=== PATIENT | male | born 1980 | race Caucasian/White ===

== ENCOUNTER 2016-11-02 11:01 | Emergency (ER) | payer MEDICARE ==
[~2016-11-02] VITALS: Ht 172.7 cm; Wt 102.1 kg
[2016-11-02 11:47] LABS: BILIRUBIN NEGATIVE (NEGATIVE); BLOOD 3+ (NEGATIVE); CLARITY CLEAR (CLEAR); COLOR YELLOW (YELLOW); GLUCOSE NEGATIVE (NEGATIVE); KETONE NEGATIVE (NEGATIVE); LEUKO ESTERASE NEGATIVE (NEGATIVE); NITRITE NEGATIVE (NEGATIVE); PH 6.5 (5.0-9.0); PROTEIN NEGATIVE (NEGATIVE); UROBILINOGEN 0.2 E.U./dl (0.2-1.0)
[2016-11-02 11:50] LABS: BASO # 0.1 10*3/uL (0.0-0.1); BASO % 1.1 % (0.0-1.0); EOS # 0.1 10*3/uL (0.0-0.4); EOS % 0.9 % (1.0-4.0); HEMATOCRIT 50.1 % (42.0-52.0); HEMOGLOBIN 16.8 g/dl (14.0-18.0); LYMPH # 2.5 10*3/uL (1.3-4.4); MEAN CELL VOLUME 89.9 fl (80.0-94.0); MEAN CORPUSCULAR HGB 30.2 pg (27.0-31.0); MEAN CORPUSCULAR HGB CONC 33.5 g/dl (33.0-37.0); MEAN PLATELET VOLUME 9.1 fl (9.6-12.3); MONO # 0.6 10*3/uL (0.1-1.0); MONO % 7.6 % (3.0-9.0); NEUT # 4.7 10*3/uL (2.3-7.9); NEUT % 59.1 % (47.0-73.0); PLATELET COUNT AUTOMATED 297 10*3/uL (130-400); RED BLOOD COUNT 5.57 10*6/uL (4.50-5.90); RED CELL DISTRI WIDTH 12.8 % (0-14.5); WHITE BLOOD COUNT 7.9 10*3/uL (4.8-10.8)
[2016-11-02 11:56] LABS: RBC 41-50 rbc/hpf (0-2)
[2016-11-02 11:57] LABS: URINE REFLEX COMMENT YES (NO); WBC 0-2 wbc/hpf (0-5)
[2016-11-02 12:10] LABS: ALBUMIN 3.5 gm/dl (3.1-4.5); ALKALINE PHOSPHATASE 98 U/L (45-117); BILIRUBIN, TOTAL 0.4 mg/dl (0.2-1.0); BUN 13 mg/dl (7-24); CARBON DIOXIDE 27 mmol/L (21-32); CHLORIDE 106 mmol/L (98-107); EST GLOM FILT AFRICAN AMERICAN > 60 ml/min; GLUCOSE 127 mg/dL (65-99); MAGNESIUM 1.9 mg/dL (1.5-2.1); POTASSIUM 3.7 mmol/L (3.5-5.1); SGOT/AST 37 IU/L (3-35); SGPT/ALT 43 U/L (12-78); SODIUM 140 mmol/L (136-145); TOTAL PROTEIN 7.2 gm/dL (6.4-8.2)
[2016-11-02 13:06] LABS: URINE AMPHETAMINES < 1000 (1000ng/ml); URINE BARBITURATES < 200 (200ng/ml); URINE COCAINE < 300 (300ng/ml)
== END 2016-11-02 13:40 | disposition home or self-care (01) ==
LOC: ED 11:01
PROVIDERS: Emergency Medicine
DX: F41.9 Anxiety disorder, unspecified (principal); F32.9 Major depressive disorder, single episode, unspecified; F17.200 Nicotine dependence, unspecified, uncomplicated

== ENCOUNTER 2023-09-26 07:04 | Inpatient (IN) | payer MEDICAID ==
[~2023-09-26] VITALS: Ht 170.2 cm; Wt 124.5 kg
[2023-09-26] VITALS (10 sets, daily range): BP systolic 114–145; BP diastolic 68–92
[2023-09-26] MEDS ORDERED: HYDROXYZINE PAM50 MG PO (07:29)
[2023-09-26] MEDS ORDERED: OLANZAPINE20 M2 PO (07:29)
[2023-09-26] MEDS ORDERED: ZESTORETIC 20-1 EACH PO (07:30)
[2023-09-26] MEDS ORDERED: GABAPENTIN800 MG PO (07:30)
[2023-09-26] MEDS ORDERED: BUSPAR15 MG PO (07:30)
[2023-09-26] MEDS ORDERED: VENLAFAXINE HY150 M2 PO (07:31)
[2023-09-26] MEDS ORDERED: LEVOTHYROXINE50 MCG PO (07:31)
[2023-09-26] MEDS ORDERED: METFORMIN HYDR500 MG PO (07:31)
[2023-09-26] MEDS ORDERED: ROSUVASTATIN CA10 MG PO (07:32)
[2023-09-26] MEDS ORDERED: 'XANAX1 MG PO (07:32)
[2023-09-26 07:59] LABS: BASO # 0.1 10*3/uL (0.0-0.1); BASO % 0.8 % (0.0-1.0); EOS # 0.3 10*3/uL (0.0-0.4); EOS % 2.1 % (1.0-4.0); HEMATOCRIT 43.5 % (42.0-52.0); LYMPH # 1.9 10*3/uL (1.3-4.4); LYMPH % 11.9 % (27.0-41.0); MEAN CORPUSCULAR HGB 31.9 pg (27.0-31.0); MEAN CORPUSCULAR HGB CONC 34.7 g/dl (33.0-37.0); MEAN PLATELET VOLUME 8.6 fl (9.6-12.3); MONO # 0.9 10*3/uL (0.1-1.0); MONO % 5.5 % (3.0-9.0); NEUT # 12.3 10*3/uL (2.3-7.9); NEUT % 78.9 % (47.0-73.0); PLATELET COUNT AUTOMATED 376 10*3/uL (130-400); RED BLOOD COUNT 4.73 10*6/uL (4.50-5.90); WHITE BLOOD COUNT 15.5 10*3/uL (4.8-10.8)
[2023-09-26 08:27] LABS: ALKALINE PHOSPHATASE 102 U/L (46-116); BUN 10 mg/dl (9-23); CHLORIDE 107 mmol/L (98-107); POTASSIUM 3.3 mmol/L (3.4-5.1); SGPT/ALT 15 U/L (5-49); TOTAL PROTEIN 7.3 gm/dL (6.0-8.0)
[2023-09-26] MEDS ORDERED: SODIUM CHLORIDE 0.9% 1,000 ML IV SCH (09:25)
[2023-09-26] MEDS ORDERED: Piperacillin Sodium/Tazobact 50 ML IV ONE (09:25)
[2023-09-26] MEDS ORDERED: POTASSIUM CHLORIDE 20 MEQ TAB PO ONE ×2 (09:25→14:50)
[2023-09-26] MEDS ORDERED: Vancomycin Hydrochloride 1,000 MG in SODIUM CHLORIDE 0.9% 250 ML IV ONE (09:25)
[2023-09-26] MEDS ORDERED: MORPHINE Sulfate 2 MG/ML SYR IV ONE (09:30)
[2023-09-26] MEDS ORDERED: Vancomycin Hydrochloride 250 ML IV ONE (09:30)
[2023-09-26] MEDS ORDERED: BUPIVACAINE 0.5% 50 ML VIAL ONE (11:30)
[2023-09-26] MEDS ORDERED: BUPIVACAINE 0.5% 30 ML IV ONE (11:31)
[2023-09-26] MEDS ORDERED: Metoclopramide Hydrochloride 10 MG/2 ML AMP ONE (11:47)
[2023-09-26] MEDS ORDERED: Ondansetron Hydrochloride 4 MG/2 ML VIAL ONE (11:48)
[2023-09-26] MEDS ORDERED: BISACODYL 10 MG SUPP R PRN (12:45)
[2023-09-26] MEDS ORDERED: HYDROmorphONE Hydrochloride 1 MG/ML SYR IV PRN (12:45)
[2023-09-26] MEDS ORDERED: Magnesium Hydroxide 30 ML UDC PO PRN (12:45)
[2023-09-26] MEDS ORDERED: ACETAMINOPHEN 325 MG TAB PO PRN (12:45)
[2023-09-26] MEDS ORDERED: BISACODYL 5 MG TAB PO PRN (12:45)
[2023-09-26] MEDS ORDERED: Acetaminophen/Oxycodone 5 MG/325 MG TABLET PO PRN (12:45)
[2023-09-26] MEDS ORDERED: SODIUM CHLORIDE 0.9% 1,000 ML IV ONE ×2 (12:50→12:55)
[2023-09-26] MEDS ORDERED: ALBUTEROL 8 GM INHALER INH ONE (14:42)
[2023-09-26] MEDS ORDERED: fentaNYL CITRATE 100 MCG/2 ML VIAL IV ONE (14:42)
[2023-09-26] MEDS ORDERED: ROCURONIUM BROMIDE 50 MG/5 ML SYRINGE IV ONE (14:42)
[2023-09-26] MEDS ORDERED: PROPOFOL 200 MG/20 ML VIAL IV ONE (14:42)
[2023-09-26] MEDS ORDERED: SEVOFLURANE 250 ML BOT INH ONE (14:42)
[2023-09-26] MEDS ORDERED: Succinylcholine Chloride 200 MG/10 ML SYRINGE IV ONE (14:42)
[2023-09-26] MEDS ORDERED: Midazolam Hydrochloride 2 MG/2 ML VIAL IV ONE (14:42)
[2023-09-26] MEDS ORDERED: Piperacillin Sodium/Tazobact 4.5 GM in SODIUM CHLORIDE 0.9% 100 ML IV SCH (16:00)
[2023-09-26] MEDS ORDERED: GABAPENTIN 800 MG TAB PO SCH (18:00)
[2023-09-26] MEDS ORDERED: hydrOXYzine pamoate 25 MG CAP PO SCH (18:00)
[2023-09-26] MEDS ORDERED: busPIRone Hydrochloride 15 MG TAB PO SCH (18:00)
[2023-09-26] MEDS ORDERED: Ketorolac Tromethamine 30 MG/ML VIAL IV SCH (18:00)
[2023-09-26] MEDS ORDERED: ATORVASTATIN CALCIUM 10 MG TAB PO SCH (22:00)
[2023-09-26] MEDS ORDERED: ALPRAZolam 0.5 MG TAB PO SCH (22:00)
[2023-09-27] VITALS: BP 117/74
[2023-09-27] MEDS ORDERED: SODIUM CHLORIDE 0.9% 1,000 ML IV ONE ×2 (00:45→00:46)
[2023-09-27] MEDS ORDERED: Pantoprazole Sodium 40 MG TAB PO SCH (06:00)
[2023-09-27 07:08] LABS: BASO # 0.1 10*3/uL (0.0-0.1); BASO % 0.6 % (0.0-1.0); EOS # 0.5 10*3/uL (0.0-0.4); HEMATOCRIT 41.7 % (42.0-52.0); LYMPH # 2.3 10*3/uL (1.3-4.4); LYMPH % 16.9 % (27.0-41.0); MEAN CELL VOLUME 93.3 fl (80.0-94.0); MEAN CORPUSCULAR HGB 32.4 pg (27.0-31.0); MEAN CORPUSCULAR HGB CONC 34.8 g/dl (33.0-37.0); MEAN PLATELET VOLUME 8.9 fl (9.6-12.3); MONO # 0.5 10*3/uL (0.1-1.0); MONO % 3.9 % (3.0-9.0); NEUT % 73.9 % (47.0-73.0); PLATELET COUNT AUTOMATED 318 10*3/uL (130-400); RED BLOOD COUNT 4.47 10*6/uL (4.50-5.90); RED CELL DISTRI WIDTH 12.4 % (0-14.5); WHITE BLOOD COUNT 13.5 10*3/uL (4.8-10.8)
[2023-09-27 07:35] LABS: ALKALINE PHOSPHATASE 100 U/L (46-116); BUN 12 mg/dl (9-23); CHLORIDE 107 mmol/L (98-107); POTASSIUM 3.6 mmol/L (3.4-5.1); SGPT/ALT 16 U/L (5-49); TOTAL PROTEIN 6.7 gm/dL (6.0-8.0)
[2023-09-27 08:00] VITALS: BP 123/70
[2023-09-27] MEDS ORDERED: Venlafaxine Hydrochloride 75 MG CAP PO SCH (10:00)
[2023-09-27] MEDS ORDERED: Enoxaparin Sodium 40 MG/0.4 ML SYR SC SCH (10:00)
[2023-09-27] MEDS ORDERED: Levothyroxine Sodium 50 MCG TAB PO SCH (10:00)
[2023-09-27] MEDS ORDERED: LISINOPRIL 20 MG TAB PO SCH (10:00)
[2023-09-27] MEDS ORDERED: OLANZAPINE 10 MG TAB PO SCH (10:00)
[2023-09-27] MEDS ORDERED: HYDROCODONE-AC1 EAC1 PO (10:54)
[2023-09-27] MEDS ORDERED: AMOX-CLAV 875-1 EACH PO (10:54)
[2023-09-27 12:00] VITALS: BP 120/70
[2023-09-27] MEDS ORDERED: Enoxaparin Sodium 40 MG/0.4 ML SYR SC ONE (12:40)
== END 2023-09-27 12:00 | disposition home or self-care (01) | DRG 710 ==
LOC: ED 07:04 → 4E 09:45 → EDHOLD 09:45 → 4E 10:15
PROVIDERS: Internal Medicine; Student in an Organized Health Care Education/Training Program; Surgery; ADMIT Internal Medicine; ATTEND Internal Medicine
PROC: 0J9B0ZZ Drainage of Perineum Subcutaneous Tissue and Fascia, Open Approach (ICD-10-PCS; principal; 2023-09-26)
DX: A41.9 Sepsis, unspecified organism (principal); N17.0 Acute kidney failure with tubular necrosis; E44.0 Moderate protein-calorie malnutrition; K61.1 Rectal abscess; I10 Essential (primary) hypertension; E03.9 Hypothyroidism, unspecified; F32.9 Major depressive disorder, single episode, unspecified; F41.1 Generalized anxiety disorder; E11.42 Type 2 diabetes mellitus with diabetic polyneuropathy; G47.00 Insomnia, unspecified; E78.5 Hyperlipidemia, unspecified; R65.20 Severe sepsis without septic shock; E87.6 Hypokalemia; E11.65 Type 2 diabetes mellitus with hyperglycemia; E11.69 Type 2 diabetes mellitus with other specified complication; F17.210 Nicotine dependence, cigarettes, uncomplicated; Z68.41 Body mass index [BMI] 40.0-44.9, adult

== ENCOUNTER 2024-12-18 03:45 | Emergency (ER) | payer MEDICARE ==
[~2024-12-18] VITALS: Ht 175.2 cm; Wt 125.9 kg
[~2024-12-18 03:45] MED LIST: 'XANAX1 MG PO; AMOX-CLAV 875-1 EACH PO; BUSPAR15 MG PO; GABAPENTIN800 MG PO; HYDROCODONE-AC1 EAC1 PO; HYDROXYZINE PAM50 MG PO; LEVOTHYROXINE50 MCG PO; METFORMIN HYDR500 MG PO; OLANZAPINE20 M2 PO; ROSUVASTATIN CA10 MG PO; VENLAFAXINE HY150 M2 PO; ZESTORETIC 20-1 EACH PO
[2024-12-18 04:34] LABS: BASO # 0.1 10*3/uL (0.0-0.1); BASO % 1.7 % (0.0-1.0); EOS # 0.1 10*3/uL (0.0-0.4); EOS % 1.9 % (1.0-4.0); MEAN CELL VOLUME 92.4 fl (80.0-94.0); MEAN CORPUSCULAR HGB 31.4 pg (27.0-31.0); MEAN PLATELET VOLUME 9.2 fl (9.6-12.3); MONO # 0.5 10*3/uL (0.1-1.0); MONO % 7.0 % (3.0-9.0); NEUT # 4.7 10*3/uL (2.3-7.9); NEUT % 63.6 % (47.0-73.0); NUCLEATED RED BLOOD CELL 0.0 % (0.0-0.0); NUCLEATED RED BLOOD CELL 0.0 10*3/uL (0.0-0.0); PLATELET COUNT AUTOMATED 299 10*3/uL (130-400); RED CELL DISTRI WIDTH 12.1 % (0-14.5)
[2024-12-18 04:49] LABS: URINE AMPHETAMINES Negative (1000ng/ml); URINE BARBITURATES Negative (200ng/ml); URINE BENZODIAZEPINES Positive (200ng/ml); URINE CANNABINOIDS (THC) Positive (50ng/ml); URINE COCAINE Negative (300ng/ml); URINE METHADONE Negative (300ng/ml); URINE OPIATES Negative (300ng/ml); URINE PHENCYCLIDINE Negative (25ng/ml)
[2024-12-18] MEDS ORDERED: VRAYLAR1.5 MG PO (04:58)
[2024-12-18] MEDS ORDERED: MINIPRESS1 M1 PO (04:58)
[2024-12-18 04:59] LABS: BUN 13 mg/dl (9-23); SGPT/ALT 59 U/L (5-49)
[2024-12-18 05:05] LABS: ETHYL ALCOHOL < 3.0 mg/dl (<3)
[2024-12-18] MEDS ORDERED: SODIUM CHLORIDE 0.9% 1,000 ML IV ONE (05:05)
== END 2024-12-18 06:49 | disposition home or self-care (01) ==
LOC: ED 03:45
PROVIDERS: Internal Medicine
DX: R55 Syncope and collapse (principal); R74.01 Elevation of levels of liver transaminase levels; F10.239 Alcohol dependence with withdrawal, unspecified; Y90.9 Presence of alcohol in blood, level not specified